=== PATIENT | male | born 1970 | race Caucasian/White ===

== ENCOUNTER 2016-04-22 21:23 | Inpatient (IN) ==
--- NOTE | 2016-04-22 22:31 | Emergency Department Note ---
Disposition Clinical Impression: Dehydration, C. difficile diarrhea Disposition: Admitted As Inpatient Condition: Good Time of Disposition: 23:30 Nausea/Vomiting/Diarrhea HPI - General Chief complaint: ED Nausea/Vomiting/Diarrhea Stated complaint: C-Diff+/here this am/Can't Stay Hydrated Time Seen by Provider: 04/22/16 22:30 Source: patient Mode of arrival: ambulatory Limitations: no limitations Nursing Notes Reviewed: Yes Vital Signs Reviewed: Yes - History of Present Illness HPI Narrative: Patient is a 46-year-old male with past medical history of C. difficile. He presents today due to dehydration. He was seen this morning for dehydration secondary to C. difficile as well. Patient was diagnosed outpatient about a week ago and was prescribed Flagyl. He finished Flagyl and Tuesday or Tuesday. He was still having diarrhea and came to the ED this morning. He was prescribed vancomycin and was was to follow-up with Dr. Mcintyre on Tuesday for reevaluation. Patient states that he has had multiple episodes of diarrhea since, continues to feel dehydrated, has dry lips and mouth, feels unwell. Has stopped urinating, no urine output since 3 or 4 PM today. Emesis mild nausea, mild generalized abdominal pain. Denies any chest pain, shortness of breath, fevers, hematuria or dysuria. - Related Data Previous Rx's Medication Instructions Recorded Ketorolac [Toradol] 10 mg PO Q6HR #20 tablet 04/22/16 Ondansetron [Zofran] 8 mg PO Q8HR #25 tablet 04/22/16 Vancomycin HCl 125 mg PO QID #56 cap 04/22/16 Allergies Allergy/AdvReac Type Severity Reaction Status Date / Time Penicillins [PCN] Allergy Hives Verified 10/30/15 16:45 Constitutional: Denies: fever Eyes: Denies: eye pain ENT ED: Denies: ear pain Cardiovascular: Denies: chest pain, palpitations Respiratory: Denies: cough, dyspnea, wheezes Gastrointestinal: Reports: abdominal pain, nausea, diarrhea. Denies: vomiting, hematemesis, melena Genitourinary: Denies: urgency, dysuria, frequency Musculoskeletal: Denies: back pain, neck pain Integumentary: Denies: rash Neurological: Denies: headache, weakness Psychiatric: Denies: depression Past Medical History - Past Medical History Attestation: Yes The following information was validated with the patient. Medical history: Reports: asthma, hypertension Psychiatric history: Reports: no psych history - Social History Smoking Status: Never smoker Smokeless Tobacco Status: No Alcohol use: Reports: rarely Drug use: Reports: none Physical Exam - General Limitations: no limitations General appearance: alert, in no apparent distress - Head Head exam: atraumatic, normocephalic, normal inspection - Eye Eye exam: Present: normal appearance, PERRL, EOMI - ENT ENT exam: other (Tacky mucous membranes, dry lips) - Neck Neck exam: Present: normal inspection, full ROM, trachea midline - Chest Chest inspection: Present: normal inspection, symmetric chest wall rise - Respiratory Respiratory exam: Present: normal lung sounds bilaterally - Cardiovascular Cardiovascular exam: Present: regular rate, normal rhythm, normal heart sounds - Abdominal Exam Abdominal exam: Present: soft, tenderness (Mild generalized abdominal tenderness.). Absent: distention, guarding, rebound, rigidity - Extremities Exam Extremities exam: Present: normal inspection, full ROM. Absent: tenderness, pedal edema - Back Exam Back exam: Present: normal inspection, full ROM. Absent: tenderness - Neurological Exam Neurological exam: Present: alert, oriented X3 - Psychiatric Psychiatric exam: Present: normal affect, normal mood - Skin Skin exam: Present: warm, dry, intact, normal color Course Course Narrative: Patient was febrile on presentation. Otherwise, the rest of the vitals were within normal limits. Tylenol given for fever. Mild abdominal tenderness generalized on exam. Tacky mucous membranes, dry lips. Clinical signs of dehydration. Due to this being the patient's second visit in 24 hours, we will plan to admit the patient for dehydration and IV fluids. 1 L normal saline bolus started. We will plan to admit due to C. difficile, secondary to dehydration. Vital Signs Temperature 102 F H 04/22/16 22:08 Pulse Rate 93 04/22/16 22:08 Respiratory Rate 16 04/22/16 22:08 Blood Pressure 120/74 04/22/16 22:08 O2 Sat by Pulse Oximetry 97 04/22/16 22:08 Temperature 102 F H 04/22/16 22:08 Pulse Rate 93 04/22/16 22:08 Respiratory Rate 16 04/22/16 22:08 Blood Pressure 120/74 04/22/16 22:08 O2 Sat by Pulse Oximetry 97 04/22/16 22:08 Oxygen Delivery Oxygen Delivery Room Air Nausea/Vomiting/Diarrhea - MDM Narrative Medical decision making narrative: Patient was febrile on presentation. Otherwise, the rest of the vitals were within normal limits. Tylenol given for fever. Mild abdominal tenderness generalized on exam. Tacky mucous membranes, dry lips. Clinical signs of dehydration. Due to this being the patient's second visit in 24 hours, we will plan to admit the patient for dehydration and IV fluids. 1 L normal saline bolus started. We will plan to admit due to C. difficile, secondary to dehydration. - Medical Records Medical records reviewed: Yes I reviewed the patient's medical records. - Lab Data Lab results reviewed: Yes I reviewed the patient's lab results. Result diagrams: 04/22/16 22:45 04/22/16 22:45 Lab Results 04/22/16 04/22/16 Range/Units 22:45 22:45 WBC 16.5 H (4.3-11.1) K/mcL RBC 5.53 H (4.19-5.50) M/mcL Hgb 10.3 L (12.9-16.9) g/dL Hct 32.8 L (37.5-50.1) % MCV 59.3 L (83.0-100.0) fL MCH 18.6 L (28.0-33.3) pg MCHC 31.4 L (31.6-35.5) g/dL RDW 19.4 H (11.5-14.5) % Plt Count 386 (140-400) K/mcL MPV 9.1 L (9.4-12.4) fL Immature Gran % 0.5 (0-4) % Seg Neutrophils % 86.0 % Lymphocytes % 5.5 % Monocytes % 6.9 % Eosinophils % 0.8 % Basophils % 0.3 % Neutrophils # 14.2 H (1.6-8.9) K/mcL Lymphocytes # 0.9 (0.6-4.6) K/mcL Monocytes # 1.1 (0.0-1.3) K/mcL Eosinophils # 0.1 (0.0-0.6) K/mcL Basophils # 0.1 (0.0-0.2) K/mcL Nucleated RBCs/100 WBC 0.1 H (0) /100 WBC Platelet Estimate Normal (Normal) Anisocytosis 2+ A (Not Present) Microcytosis Present A (Not Present) Sodium 135 L (136-145) mEq/L Potassium 3.5 (3.5-4.5) mEq/L Chloride 105 (98-109) mEq/L Carbon Dioxide 23 (19-29) mEq/L BUN 11 (8-26) mg/dL Creatinine 1.14 (0.72-1.25) mg/dL Est GFR ( Amer) > 60 (> 60) Est GFR (Non-Af Amer) > 60 (> 60) BUN/Creatinine Ratio 10 (6-26) Glucose 108 H (70-99) mg/dL Calculated Osmolality 280 (280-300) Calcium 8.4 L (8.6-10.8) mg/dL S.B.A.R. - S.B.A.R. Situation: Demographics, MOA Background: Presenting Complaint, Relevant PMH, Meds, & Allergies Assessment: Vital Signs, Course and respsone to treatment, Exam Concerns, Patient/Family Expectation, Pertinant Lab Results, Outstanding Labs Recommendation: Barrier(s) to disposition, Recommendation based on pending studies, treatments, or consults S.B.A.R. Report Given to: Dr. Hart S.B.A.R. Repor Time: 23:30 Attestation Statement - Attestation Attestation: I, Celso Chiang MD, personally performed a history and physical exam of the patient and discussed their management with the resident. I reviewed the resident's note and agree with the documented findings, medical decision making , and plan of care. 46-year-old male presents to the emergency department with a complaint of profuse diarrhea and crampy abdominal pain. Patient was recently diagnosed with C. difficile and treated as an outpatient. His symptoms seem to be resolved until yesterday whenever the diarrhea returned and became worse with crampy diffuse abdominal pain and fever. He was seen here in the emergency department earlier today and received IV fluids. This evening's symptoms were worse so he returned. On examination patient is a well-developed well-nourished male in no acute distress. He is alert and oriented 3. There is no cyanosis or diaphoresis. Labs reviewed. The hospitalist, Dr. Hart, was consulted and accepted admission of the patient.
[2016-04-22] MEDS ORDERED: 0.9 % Sodium Chloride 1,000 ML IVC ONE (22:39)
[2016-04-22] MEDS ORDERED: Ondansetron 4 MG/2 ML VIAL IVP ONE (22:39)
[2016-04-22 22:51] LABS: Basophils # 0.1 K/mcL (0.0-0.2); Basophils % 0.3 %; Eosinophils # 0.1 K/mcL (0.0-0.6); Eosinophils % 0.8 %; Hematocrit 32.8 % (37.5-50.1); Hemoglobin 10.3 g/dL (12.9-16.9); Immature Granulocytes % 0.5 % (0-4); Lymphocytes # 0.9 K/mcL (0.6-4.6); Lymphocytes % 5.5 %; Mean Corpuscular HGB Conc 31.4 g/dL (31.6-35.5); Mean Corpuscular Hemoglobin 18.6 pg (28.0-33.3); Mean Corpuscular Volume 59.3 fL (83.0-100.0); Mean Platelet Volume 9.1 fL (9.4-12.4); Monocytes # 1.1 K/mcL (0.0-1.3); Monocytes % 6.9 %; Neutrophils # 14.2 K/mcL (1.6-8.9); Nucleated Red Blood Cells 0.1 /100 WBC (0); Platelet Count 386 K/mcL (140-400); Red Blood Count 5.53 M/mcL (4.19-5.50); Red Cell Distribution Width 19.4 % (11.5-14.5)
[2016-04-22 23:03] LABS: BUN/Creatinine Ratio 10 (6-26); Blood Urea Nitrogen 11 mg/dL (8-26); Calcium 8.4 mg/dL (8.6-10.8); Carbon Dioxide 23 mEq/L (19-29); Chloride 105 mEq/L (98-109); Glucose 108 mg/dL (70-99); Osmolality,Calculated 280 (280-300); Potassium 3.5 mEq/L (3.5-4.5); Sodium 135 mEq/L (136-145); eGFR For African Americans > 60 (> 60); eGFR For Non-African Americans > 60 (> 60)
[2016-04-22] MEDS ORDERED: MetroNIDAZOLE 500 MG/100 ML 500 MG/100 ML BAG IVPB ONE (23:23)
[2016-04-22 23:31] LABS: Anisocytosis 2+ (Not Present); Platelet Estimate Normal (Normal)
[2016-04-22 23:32] LABS: Microcytosis Present (Not Present)
[2016-04-23] MEDS ORDERED: *HR* Promethazine 25 MG/ML VIAL IVP PRN (02:40)
[2016-04-23] MEDS ORDERED: Naloxone 0.4 MG/ML INJ IVP PRN (02:40)
[2016-04-23] MEDS ORDERED: *HR* HYDROmorphone (PF) 1 MG/ML SYRINGE IVP PRN (02:40)
[2016-04-23] MEDS ORDERED: Acetaminophen 325 MG TABLET PO PRN (02:40)
[2016-04-23] MEDS ORDERED: Diphenoxylate/Atropine 1 TAB TABLET PO PRN (02:49)
[2016-04-23] MEDS ORDERED: Hyoscyamine 0.5 MG/ML MLS IVP PRN (02:49)
[2016-04-23] MEDS: 0.9 % Sodium Chloride 1,000 ML IVC SCH ×3 (03:01→17:49)
--- NOTE | 2016-04-23 03:03 | Internal Med History&Physical ---
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 (2) Sepsis Current visit: Yes Status: Acute . Qualifiers: Sepsis type: sepsis due to unspecified organism Qualified Code(s): A41.9 - Sepsis, unspecified organism (3) Urine abnormality Current visit: Yes Status: Acute . (4) Calcium oxalate crystals present in urine Current visit: Yes Status: Acute . (5) Urinary cast, hyaline Current visit: Yes Status: Acute . (6) Nephropathy induced by unspecified drug, medicament or biological substance Current visit: Yes Status: Acute . (7) Clostridium difficile infection Current visit: Yes Status: Acute . (8) Dehydration Current visit: Yes Status: Acute . (9) SIRS due to infectious process with acute organ dysfunction Current visit: Yes Status: Acute . (10) Microcytic hypochromic anemia Current visit: Yes Status: Chronic . (11) UTI (urinary tract infection) Current visit: Yes Status: Acute . Qualifiers: Urinary tract infection type: site unspecified Hematuria presence: without hematuria Qualified Code(s): N39.0 - Urinary tract infection, site not specified (12) AZIZA (acute kidney injury) Current visit: Yes Status: Acute . (13) Obesity (BMI 30-39.9) Current visit: Yes Status: Chronic . (14) Clostridium difficile enterocolitis Current visit: Yes Status: Acute . Internal Medicine - H&P: HPI Chief complaint: Nausea vomiting diarrhea and abdominal pain Admitted From: Emergency Dept Plans for Post Hospital Care: Home History of present illness: Mr. Craig is a 46 year old male with history significant for hypertension, dyslipidemia, GERD, ?borderline DM/glucose intolerance, osteoarthritis, RAD/ asthma, obesity, nonsmoker The patient was visited and interviewed and examined. Patient is admitted to the [facility] emergency department when he presents with history of recently diagnosed as C. difficile enterocolitis following a course of today antibiotic therapy with Omnicef for URI. He denies any other potential exposures to see if C. difficile. He was rated as an 8/10 severity cramping constant diffuse. Nothing seemed to improve when symptoms were present. Symptoms however were aggravated with eating. Vital signs have captured evidences of temperatures as high as 102 degrees Fahrenheit. The course of his illness. Patient initiated on oral metronidazole therapy. He completed the weeks treatment and return to the emergency department 3 days before this presentation reports continued abdominal pain nausea and diarrhea. He was at that time prescribed vancomycin oral therapy plus Zofran as antiemetic and Toradol as anti-inflammatory analgesia and will schedule outpatient appointment with infectious disease to occur within a week. However he continued to be symptomatic thus failing outpatient therapy returning to the emergency department due to progressive dehydration due to profuse diarrhea and progressive anorexia for solids and liquids. The general feeling of dehydration with dried lips and mouth and feeling of unwellness. Multiple episodes of loose watery diarrhea. He reported that he had stopped urinating approximately 3 to 4 PM the day of presentation. He denied any feverishness and chills sweats. Denied any evidence of hematuria or melena. No blood per rectum. Episodic emesis with associated mild nausea and generalized abdominal discomfort with cramping pain. Findings in the ED were compatible with systemic inflammatory response syndrome and sepsis criteria present upon admission. RBC indices were noteworthy for a microcytic hyperchromic anemia with microcytosis suggestive of a hemoglobinopathy. Patient acknowledged a history of thalassemia minor. He denied any evidence bleeding events suggestive of hemolysis. Urine sediment was noteworthy for calcium oxalate crystals, hyalin casts, marked proteinuria and concentrated urine. Soft findings for UTI also noted. Blood cell differential in addition to the neutrophilic leukocytosis polychromasia and hypochromasia with poikilocytosis. Evidence of helmet cells and schistocytes were also noted. Tinnitus. 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 C. difficile toxin B gene testing returned positive. The patient is admitted to undergo further evaluation and disposition. He is at risk for clinical decline and morbidity given his presenting findings, chief complaints and comorbidities. Cumulative laboratory and radiographic data base was reviewed,considered and discussed. Pertinent ancillary medical records including ECW and PCI documentation was reviewed and considered. Given the patient's presenting concerns, past medical history, clinical findings and symptoms, he is admitted at this time will undergo further evaluation and disposition. Orders were written as per the computerized physician job order clerk system.......................................................................... .................... Consultative opinions will be sought as clinical circumstances justify. Pain management needs will be addressed. Laboratory and radiographic data base will be updated as appropriate. Studies include: Cultures blood urine, GI stool panel, LDH, CPK, pt/inr, aptt, cardiac injury panel, BNP, UA, metabolic and hematologic panel, mag, phos, ionized calcium, thyroid panel, lipid profile, HbgA1c C-pep, CRP, sed rate, respiratory infection profile, respiratory virus panel, blood gas, amylase, lipase, lactic acid, iron studies, haptoglobin,retic count, random urine assays, serologies, etc. Precautions: Aspiration, fall, delirium protocol/surveillance initiated. Bowel rest imposed. Anti-emetics, probiotic, prokinetic therapy employed. Intravenous hyoscyamine when necessary for colonic spasms. Nocturnal lomotil trial when necessary for restless sleep. Telemetry with continuous hemodynamic monitoring and pulse oximetry initiated. Orthostatic vital signs. Empiric antibody coverage: Intravenous ciprofloxacin and metronidazole pending final culture data. Vancomycin oral suspension resumed. Special studies: CT abd/pelvis, chest x-ray, telemetry, EKG. Pulmonary toilet: Incentive spirometry. PRN aerosol bronchodilator, mucolytic, antitussive, supplemental oxygen. Corticosteroid therapyPRN. CPAP/BiPAP supplemental oxygen deliveryPRN. Aerosol Mucomyst therapyPRN. Fluid and electrolyte repletion efforts will proceed. Careful attention to fluid balance and renal recovery will be emphasized. Avoidance of nephrotoxic exposure and adverse drug drug interaction in the setting of impaired renal function will be monitored closely. Acute coronary syndrome protocol/surveillance initiated. DVT and PUD prophylaxis initiated: PPI therapy, intermittent pneumatic cuffs. Subcutaneous heparin was held due to thrombocytopenia. Early ambulation will be encouraged. Immunization updates recommended. Influenza and pneumococcal vaccinations as part of ongoing preventative healthcare recommendations strongly recommended. Smoking cessation counseling briefly addressed. Patient is a nonsmoker. Advanced care directive discussion briefly addressed. Patient does not declare any healthcare restrictions at this time. Cardiovascular risk appraisal and cardiovascular risk reduction efforts will be emphasized. Physical occupational therapy may be counseled to evaluate patient's function capacity and progressive mobility of her circumstances justify. Nutrition/diabetes education counseling may be considered as circumstances justify. Outpatient medication schedules will be reviewed, confirmed and facilitated as appropriate. Reconciliation of home treatments including adjustments, substitutions and reintroduction into the treatment regimen as necessary maintenance therapies for chronic pre-existing medical conditions. Plan of care has been reviewed and discussed in detail with the patient. Questions addressed. Hospital course dictated by the clinical findings, treatment response and potential consultative interventions. Patient is at risk for further acute clinical decline and morbidity due to presenting chief complaints, findings and comorbid conditions. Condition is serious. Prognosis is guarded. CODE STATUS is full. Past Med Surg Social Fam HX - Past Medical History Source: old records reviewed Medical history: arthritis, asthma, GERD, hyperlipidemia, hypertension, other ( Thalassemia minor with microcytic hyperchromic red blood cell indices. Biliary dyskinesia status post laparoscopic cholecystectomy. Allergic rhinitis.) Psychiatric history: other - Past Surgical History Surgical History: cholecystectomy, sinus surgery (Deviated septum repair. Tonsillectomy adenoidectomy.), other (Colonoscopy with polypectomy.) - Social History Smoking Status: Never smoker Smokeless Tobacco Status: No Alcohol use: rarely Drug use: none Occupational status: employed Current living situation: With Family Activity Level: Independent ambulation, Mostly sedentary Recent Out of Country Travel Within the Last 8 Weeks: No Exposure or Possible Exposure to Illness During Travel: No Internal Medicine - H&P: Meds Ketorolac [Toradol] 10 mg PO Q6HR #20 tablet 04/22/16 [Rx] Ondansetron [Zofran] 8 mg PO Q8HR #25 tablet 04/22/16 [Rx] Vancomycin HCl 125 mg PO QID #56 cap 04/22/16 [Rx] Allergies Penicillins [PCN] Allergy (Verified 10/30/15 16:45) Hives All Systems PM: A 10-system review of systems was performed and is negative for pertinent findings except as documented above in the HPI. - Constitutional Constitutional: malaise, no chills, no fever(s), no night sweats - EENT Eyes: as per HPI, no change in vision, no discharge, no pain, no photophobia Ears: as per HPI, no ear discharge, no ear pain, no tinnitus Nose, mouth and throat: as per HPI, no dysphagia, no nasal discharge, no neck pain, no sore throat - Cardiovascular Cardiovascular ROS IM: as per HPI, no chest pain, no diaphoresis, no dyspnea, no lightheadedness, no palpitations, no syncope - Respiratory Respiratory: as per HPI, no cough, no dyspnea, no wheezing, no excessive phlegm production - Gastrointestinal Gastrointestinal: as per HPI, abdominal pain, bloating, change in stool character, cramping, diarrhea, loose stools, nausea, no hematemesis, no hematochezia, no melena, no vomiting - Genitourinary Genitourinary ROS male: as per HPI - Musculoskeletal Musculoskeletal ROS IM: as per HPI, no numbness, no tingling - Integumentary Integumentary IM: as per HPI, no rash, no unusual bruising - Neurological Neurological ROS: as per HPI, no confusion, no convulsions, no focal weakness, no numbness, no tingling, no tremor(s) - Psychiatric Psychiatric: as per HPI - Endocrine Endocrine IM: as per HPI - Hematologic/Lymphatic Hematologic/Lymphatic: as per HPI, no easy bruising - Allergic/Immunologic Allergic/Immunologic: as per HPI - Constitutional Vitals: Temp Pulse Resp BP Pulse Ox 99.7 F H 88 16 144/87 94 L 04/23/16 02:00 04/23/16 02:00 04/23/16 02:00 04/23/16 02:00 04/23/16 02:00 General appearance: Present: cooperative, mild distress, A&O X 3, obese, answers questions appropriately - Head Head exam: Present: atraumatic, normocephalic - Eye Eye exam: Present: EOMI, PERRL, conjuntiva pink, sclera anicteric Pupils: Present: normal accommodation, PERRL - ENT ENT exam: Present: mucous membranes dry, normal external ear exam, normal oropharynx - Neck Neck exam general surgery: Present: full ROM, supple, trachea midline. Absent: lymphadenopathy, nuchal rigidity - Respiratory Respiratory exam: Present: decreased breath sounds, CTAB. Absent: accessory muscle use, rales, rhonchi, wheezes - Cardiovascular Cardiovascular exam: Present: distant heart sounds, RRR, +S1, +S2. Absent: diastolic murmur, gallop, rubs, systolic murmur - GI/Abdominal GI/Abdominal exam: Present: distended, hyperactive bowel sounds, soft, tenderness (DIFFUSE), no peritoneal signs - Extremities Exam Extremities exam: Present: full ROM, warm, radial pulses palpable and symetrical. Absent: calf tenderness, cyanotic, pedal edema - Back Exam Back exam: Present: full ROM. Absent: CVA tenderness (L), CVA tenderness (R), muscle spasm, paraspinal tenderness, rash noted, vertebral tenderness - Neurological Exam Neurological exam: Present: alert, CN II-XII intact, oriented X3, no focal deficits. Absent: pronater drift, facial droop, speech deficit - Expanded Neurological Exam Neurological exam expanded: Present: inattentive, protecting the airway. Absent : ataxia, expressive aphasia, receptive aphasia Patient oriented to: Present: person, place, time Speech: Present: fluid speech Ataxia: Absent: yes Coma Scale Eye Opening: Spontaneous Coma Scale Motor Response: Obeys Commands Coma Scale Verbal Response: Oriented Coma Scale Total: 15 - Psychiatric Psychiatric exam: Present: flat affect, normal mood - Skin Skin exam: Present: dry, intact, warm. Absent: petechiae, rash, urticaria, vesicles Internal Med - H&P Results - Labs CBC & Chem 7: 04/22/16 22:45 04/22/16 22:45 Labs: Vital Signs Temp Pulse Resp BP Pulse Ox 04/23/16 02:00 99.7 F H 88 16 144/87 94 L 04/22/16 23:54 18 137/78 04/22/16 22:08 102 F H 93 16 120/74 97 Intake and Output 04/22/16 04/22/16 04/23/16 15:59 23:59 07:59 Intake Total 100 / 100 Output Total 0 / 0 Balance 100 / 100 Intake: IV Fluids 100 / 100 Flagyl 500 MG/100 ML 500 100 / 100 mg In 100 ml @ 100 mls/hr IVPB ONCE ONE Rx#: [id number] Oral 0 / 0 Output: Urine 0 / 0 Other: Weight 98.883 kg 103.532 kg Patient Weight 04/23/16 23:59 Weight 103.532 kg Short CBC 04/22/16 Range/Units 22:45 WBC 16.5 H (4.3-11.1) K/mcL Hgb 10.3 L (12.9-16.9) g/dL Hct 32.8 L (37.5-50.1) % Plt Count 386 (140-400) K/mcL Neutrophils # 14.2 H (1.6-8.9) K/mcL BMP 04/22/16 Range/Units 22:45 Sodium 135 L (136-145) mEq/L Potassium 3.5 (3.5-4.5) mEq/L Chloride 105 (98-109) mEq/L Carbon Dioxide 23 (19-29) mEq/L BUN 11 (8-26) mg/dL Creatinine 1.14 (0.72-1.25) mg/dL Glucose 108 H (70-99) mg/dL Calcium 8.4 L (8.6-10.8) mg/dL Allergies Allergy/AdvReac Type Severity Reaction Status Date / Time Penicillins [PCN] Allergy Hives Verified 10/30/15 16:45 - Impressions Abnormal lab results WBC 16.5 K/mcL (4.3-11.1) H 04/22/16 22:45 RBC 5.53 M/mcL (4.19-5.50) H 04/22/16 22:45 Hgb 10.3 g/dL (12.9-16.9) L 04/22/16 22:45 Hct 32.8 % (37.5-50.1) L 04/22/16 22:45 MCV 59.3 fL (83.0-100.0) L 04/22/16 22:45 MCH 18.6 pg (28.0-33.3) L 04/22/16 22:45 MCHC 31.4 g/dL (31.6-35.5) L 04/22/16 22:45 RDW 19.4 % (11.5-14.5) H 04/22/16 22:45 MPV 9.1 fL (9.4-12.4) L 04/22/16 22:45 Neutrophils # 14.2 K/mcL (1.6-8.9) H 04/22/16 22:45 Nucleated RBCs/100 WBC 0.1 /100 WBC (0) H 04/22/16 22:45 Anisocytosis 2+ (Not Present) A 04/22/16 22:45 Microcytosis Present (Not Present) A 04/22/16 22:45 Sodium 135 mEq/L (136-145) L 04/22/16 22:45 Glucose 108 mg/dL (70-99) H 04/22/16 22:45 Calcium 8.4 mg/dL (8.6-10.8) L 04/22/16 22:45 Laboratory Results WBC 16.5 K/mcL (4.3-11.1) H 04/22/16 22:45 RBC 5.53 M/mcL (4.19-5.50) H 04/22/16 22:45 Hgb 10.3 g/dL (12.9-16.9) L 04/22/16 22:45 Hct 32.8 % (37.5-50.1) L 04/22/16 22:45 MCV 59.3 fL (83.0-100.0) L 04/22/16 22:45 MCH 18.6 pg (28.0-33.3) L 04/22/16 22:45 MCHC 31.4 g/dL (31.6-35.5) L 04/22/16 22:45 RDW 19.4 % (11.5-14.5) H 04/22/16 22:45 Plt Count 386 K/mcL (140-400) 04/22/16 22:45 MPV 9.1 fL (9.4-12.4) L 04/22/16 22:45 Immature Gran % 0.5 % (0-4) 04/22/16 22:45 Seg Neutrophils % 86.0 % 04/22/16 22:45 Lymphocytes % 5.5 % 04/22/16 22:45 Monocytes % 6.9 % 04/22/16 22:45 Eosinophils % 0.8 % 04/22/16 22:45 Basophils % 0.3 % 04/22/16 22:45 Neutrophils # 14.2 K/mcL (1.6-8.9) H 04/22/16 22:45 Lymphocytes # 0.9 K/mcL (0.6-4.6) 04/22/16 22:45 Monocytes # 1.1 K/mcL (0.0-1.3) 04/22/16 22:45 Eosinophils # 0.1 K/mcL (0.0-0.6) 04/22/16 22:45 Basophils # 0.1 K/mcL (0.0-0.2) 04/22/16 22:45 Nucleated RBCs/100 WBC 0.1 /100 WBC (0) H 04/22/16 22:45 Platelet Estimate Normal (Normal) 04/22/16 22:45 Anisocytosis 2+ (Not Present) A 04/22/16 22:45 Microcytosis Present (Not Present) A 04/22/16 22:45 Sodium 135 mEq/L (136-145) L 04/22/16 22:45 Potassium 3.5 mEq/L (3.5-4.5) 04/22/16 22:45 Chloride 105 mEq/L (98-109) 04/22/16 22:45 Carbon Dioxide 23 mEq/L (19-29) 04/22/16 22:45 BUN 11 mg/dL (8-26) 04/22/16 22:45 Creatinine 1.14 mg/dL (0.72-1.25) 04/22/16 22:45 Est GFR ( Amer) > 60 (> 60) 04/22/16 22:45 Est GFR (Non-Af Amer) > 60 (> 60) 04/22/16 22:45 BUN/Creatinine Ratio 10 (6-26) 04/22/16 22:45 Glucose 108 mg/dL (70-99) H 04/22/16 22:45 Calculated Osmolality 280 (280-300) 04/22/16 22:45 Calcium 8.4 mg/dL (8.6-10.8) L 04/22/16 22:45 - Attending Attestation My signature below is to certify that this patient is under my care and that I, or nurse practitioner, or a physician's quality control assistant working with me, has a face-to -face encounter with this patient. Allergies Penicillins [PCN] Allergy (Verified 10/30/15 16:45) Hives I & O 04/20/16 04/21/16 04/22/16 04/23/16 23:59 23:59 23:59 23:59 Intake Total 100 / 100 Output Total 0 / 0 Balance 100 / 100 Weight 98.883 kg 103.532 kg Intake: IV Fluids 100 / 100 Flagyl 500 MG/100 ML 500 100 / 100 mg In 100 ml @ 100 mls/hr IVPB ONCE ONE Rx#: [id number] Oral 0 / 0 Output: Urine 0 / 0 Medications Acetaminophen (Tylenol) 650 mg PO Q6HR PRN PRN Reason: Mild Pain (1-3) Stop: 10/23/16 02:41 Diphenoxylate HCl/Atropine (Lomotil 2.5 Mg/0.025 Mg) 2 tab PO HS PRN PRN Reason: Diarrhea Stop: 10/23/16 21:01 Hydromorphone HCl (Dilaudid) 0.5 mg IVP Q2H PRN PRN Reason: Severe Pain (7-10) Stop: 10/23/16 02:41 Hyoscyamine Sulfate (Levsin) 0.25 mg IVP QID PRN PRN Reason: Abdominal Distention Stop: 10/23/16 02:50 Sodium Chloride (0.9 % Sodium Chloride) 1,000 mls @ 150 mls/hr IVC .Q6H40M [facility] Stop: 10/23/16 02:46 Last Admin: 04/23/16 03:01 Dose: 150 mls/hr Metronidazole (Flagyl 500 Mg/100 Ml) 500 mg in 100 mls @ 100 mls/hr IVPB Q6HR [facility] Stop: 10/23/16 06:01 Ciprofloxacin Lactate (Cipro 400 Mg/200 Ml) 400 mg in 200 mls @ 200 mls/hr IVPB Q12HR [facility] Stop: 10/23/16 06:01 Naloxone HCl (Narcan) 0.4 mg IVP Q2MIN PRN PRN Reason: Opioid Reversal Stop: 10/23/16 02:41 Omeprazole (Prilosec) 20 mg PO DAILY@0630 [place] PRN Reason: Protocol Stop: 10/23/16 06:31 Oxycodone HCl (Roxicodone) 10 mg PO Q6HR PRN PRN Reason: Moderate Pain (4-6) Stop: 10/23/16 02:41 Promethazine HCl (Phenergan) 12.5 mg IVP Q6HR PRN PRN Reason: Nausea And Vomiting Stop: 10/23/16 02:41 Last Admin: 04/23/16 03:07 Dose: 12.5 mg Vancomycin HCl (Vancocin) 250 mg PO QID [facility] Stop: 10/23/16 09:01 Discontinued Medications Acetaminophen (Tylenol) 1,000 mg PO ONCE ONE Stop: 04/22/16 23:06 Last Admin: 04/22/16 23:11 Dose: 1,000 mg Sodium Chloride (0.9 % Sodium Chloride) 1,000 mls @ 3,750 mls/hr IVC .Q16M ONE Stop: 04/22/16 22:54 Last Admin: 04/22/16 23:11 Dose: 3,750 mls/hr Metronidazole (Flagyl 500 Mg/100 Ml) 500 mg in 100 mls @ 100 mls/hr IVPB ONCE ONE Stop: 04/23/16 00:22 Last Infusion: 04/23/16 01:44 Dose: 0 mls/hr Ondansetron HCl (Zofran) 4 mg IVP ONCE ONE PRN Reason: Protocol Stop: 04/22/16 22:40 Last Admin: 04/22/16 23:11 Dose: 4 mg Nursing Notes 04/22/16 23:59 Transport Report by Kennedi Willett Date: 04/22/16 Transport Method: Ambulatory Penicillins [PCN] Allergy (Verified 10/30/15 16:45) Hives Resuscitation Status Oxygen: Mental Status: Fall Risk: Isolation: Nurse Required for Transport: No ___ Yes Limb Restrictions: No ___ Yes Behavioral issue/Risk for Elopement: No ___ Yes Telemetry Room Notification: Destination: MRI XRAY STRESS ULTRASOUND CT DIALYSIS ENDO OTHER: Depart Time: Nurse: Transporter: Arrive Time: Received by: ___ Return Time: Nurse: Transporter: ] Initialized on 04/22/16 23:59 - END OF NOTE 04/22/16 23:56 Transport Report by Kennedi Willett Date: 04/22/16 Transport Method: Ambulatory Penicillins [PCN] Allergy (Verified 10/30/15 16:45) Hives Resuscitation Status Oxygen: Mental Status: Fall Risk: Isolation: Nurse Required for Transport: No ___ Yes Limb Restrictions: No ___ Yes Behavioral issue/Risk for Elopement: No ___ Yes Telemetry Room Notification: Destination: MRI XRAY STRESS ULTRASOUND CT DIALYSIS ENDO OTHER: Depart Time: Nurse: Transporter: Arrive Time: Received by: ___ Return Time: Nurse: Transporter: ] Initialized on 04/22/16 23:56 - END OF NOTE Orders 04/22/16 22:39 0.9 % Sodium Chloride 1,000 ml IVC 3,750 mls/hr Ondansetron [Zofran] 4 mg IVP ONCE ONE 04/22/16 22:45 Basic Metabolic Panel Stat Comment: Specimen: Send someone from the department to collect Complete Blood Count [HEME] Stat Comment: Specimen: Send someone from the department to collect 04/22/16 23:05 Acetaminophen [Tylenol] 1,000 mg PO ONCE ONE 04/22/16 23:[address] Stat Comment: Reason for Visit: dehydration, c diff 04/22/16 23:23 MetroNIDAZOLE 500 MG/100 ML [Flagyl 500 MG/100 ML] 500 mg in 100 ml IVPB ONCE 04/22/16 23:50 CPAP [RC] HS 04/22/16 23:51 RT has an order or consult [RC] NOW 04/23/16 02:40 Peripheral IV [RC] CONT Vital Signs Assessment [RC] Q4H Acetaminophen [Tylenol] 650 mg PO Q6HR PRN HYDROmorphone (PF) [Dilaudid] 0.5 mg IVP Q2H PRN Naloxone [Narcan] 0.4 mg IVP Q2MIN PRN OxyCODONE Immed Rel [Roxicodone] 10 mg PO Q6HR PRN Promethazine [Phenergan] 12.5 mg IVP Q6HR PRN Resuscitation Status: Active [RES] Routine Resuscitation Status: Full Code Comment: 04/23/16 02:41 Bed rest [RC] .CONT Physician Instructions: Bed rest w/bathroom privileges [RC] .PRN Placement to Observation Routine Physician Instructions: Reason for Visit: Abdominal pain with nausea vomiting diarrhea Is VTE Prophylaxis Indicated?: Yes 04/23/16 02:42 Continuous pulse oximetry [RC] CONT Comment: Measure intake and output [RC] QSHIFT Measure weight [RC] DAILY RT has an order or consult [RC] NOW 04/23/16 02:45 Apply anti-embolic stockings [RC] .NOW Incentive Spirometry [RC] .6 TIMES PER HR WHILE AWAKE Troponin I Q6H Specimen: Send someone from the department to collect Comment: 0.9 % Sodium Chloride 1,000 ml IVC 150 mls/hr 04/23/16 02:49 Diphenoxylate/Atropine [Lomotil 2.5 mg/0.025 mg] 2 tab PO HS PRN Hyoscyamine [Levsin] 0.25 mg IVP QID PRN 04/23/16 04:00 Amylase AM 0400 Specimen: Send someone from the department to collect Comment: Ionized Calcium AM 0400 Specimen: Send someone from the department to collect Comment: Iron Profile AM 0400 Specimen: Send someone from the department to collect Comment: Lactate [Lactic Acid ([facility] Only)] AM 0400 Specimen: Send someone from the department to collect Comment: Lipase AM 0400 Specimen: Send someone from the department to collect Comment: Thyroid Stimulating Hormone AM 0400 Specimen: Send someone from the department to collect Comment: Venous Blood Gas AM 0400 Specimen: Send someone from the department to collect Comment: 04/23/16 06:00 400 MG IV Q12HR Ciprofloxacin 400 MG/200 ML [Cipro 400 MG/200 ML] 400 mg in 200 ml IVPB Q12HR 500mg IVPB q6hr MetroNIDAZOLE 500 MG/100 ML [Flagyl 500 MG/100 ML] 500 mg in 100 ml IVPB Q6HR 04/23/16 06:30 Omeprazole [PriLOSEC] 20 mg PO DAILY@0630 04/23/16 08:45 Troponin I Q6H Specimen: Send someone from the department to collect Comment: 04/23/16 09:00 Vancomycin Oral Soln [Vancocin] 250 mg PO QID 04/23/16 14:45 Troponin I Q6H Specimen: Send someone from the department to collect Comment: 04/23/16 Breakfast Clear Liquid Diet Diet Modifications: Patient Problems (Last Updated 04/23/16 @ 03:14 by Mateo Carlson MD) Clostridium difficile infection (Acute) Dehydration (Acute) C. difficile diarrhea (Acute) SIRS due to infectious process with acute organ dysfunction (Acute) Microcytic hypochromic anemia (Chronic) UTI (urinary tract infection) (Acute) AZIZA (acute kidney injury) (Acute) Obesity (BMI 30-39.9) (Chronic) Clostridium difficile enterocolitis (Acute) Calcium oxalate crystals present in urine (Acute) Nephropathy induced by unspecified drug, medicament or biological substance ( Acute) Sepsis (Acute) Urinary cast, hyaline (Acute) Urine abnormality (Acute) Thalassemia minor (Chronic) Vital Signs Temp Pulse Resp BP Pulse Ox 04/23/16 02:00 99.7 F H 88 16 144/87 94 L 04/22/16 23:54 18 137/78 04/22/16 22:08 102 F H 93 16 120/74 97 Laboratory Results 04/22/16 04/22/16 Range/Units 22:45 22:45 WBC 16.5 H (4.3-11.1) K/mcL RBC 5.53 H (4.19-5.50) M/mcL Hgb 10.3 L (12.9-16.9) g/dL Hct 32.8 L (37.5-50.1) % MCV 59.3 L (83.0-100.0) fL MCH 18.6 L (28.0-33.3) pg MCHC 31.4 L (31.6-35.5) g/dL RDW 19.4 H (11.5-14.5) % Plt Count 386 (140-400) K/mcL MPV 9.1 L (9.4-12.4) fL Immature Gran % 0.5 (0-4) % Seg Neutrophils % 86.0 % Lymphocytes % 5.5 % Monocytes % 6.9 % Eosinophils % 0.8 % Basophils % 0.3 % Neutrophils # 14.2 H (1.6-8.9) K/mcL Lymphocytes # 0.9 (0.6-4.6) K/mcL Monocytes # 1.1 (0.0-1.3) K/mcL Eosinophils # 0.1 (0.0-0.6) K/mcL Basophils # 0.1 (0.0-0.2) K/mcL Nucleated RBCs/100 WBC 0.1 H (0) /100 WBC Platelet Estimate Normal (Normal) Anisocytosis 2+ A (Not Present) Microcytosis Present A (Not Present) Sodium 135 L (136-145) mEq/L Potassium 3.5 (3.5-4.5) mEq/L Chloride 105 (98-109) mEq/L Carbon Dioxide 23 (19-29) mEq/L BUN 11 (8-26) mg/dL Creatinine 1.14 (0.72-1.25) mg/dL Est GFR ( Amer) > 60 (> 60) Est GFR (Non-Af Amer) > 60 (> 60) BUN/Creatinine Ratio 10 (6-26) Glucose 108 H (70-99) mg/dL Calculated Osmolality 280 (280-300) Calcium 8.4 L (8.6-10.8) mg/dL Assessments/Treatments ED Discharge Assessment Start: 04/22/16 21: 24 Freq: Status: Active Document 04/22/16 23:54 [facility] (Rec: 04/22/16 23:55 [facility] [id number]) ED Discharge Assessment ED Discharge Disposition Admitted Med Rec/Patient Pharmacy Completed? Yes Admitted to 3A Bed assigned 51 Transported by telephone technician Transported with IV continuing medication Report given to Nurse Care transferred to (name/credentials) DIA Brown Information relayed patient's care treatments medications given condition recent/anticipated changes Clinical Documentation Summary Provided Yes Pain Scale 4 Pain Scale Used Standard (1-10) Blood Pressure 137/78 Heart rate 92 Respiratory Rate 18 Oxygen Delivery Room Air Oxygen Saturation 97 Critical Care Minutes 0 ED Nausea/Vomiting/Diarrhea Assessment Start: 04/22/16 22: 11 Freq: Status: Complete Document 04/22/16 22:12 [facility] (Rec: 04/22/16 22:18 [facility] [id number]) Nausea/Vomiting/Diarrhea Symptoms/Complaint Diarrhea Abdominal Pain Onset 2 weeks Associated Abdominal Pain Yes Quality Aching Consistency Constant Improves With Nothing Associated Symptoms Fever/Chills Level Of Consciousness Awake Alert Appropriate Patient Orientation Person Place Time Name Age Date of Day of Month Day of Week Month Year Time of Day Respiratory Depth Normal Respiratory Effort Normal for Patient Spontaneous Non-Labored Respiratory Pattern Regular Abdomen Description Flat Soft Tender All Quadrants Bowel Sounds Active ED Comment Pt states that he was diagnosed with c-diff two weeks ago. pt states that he was started on flagyl but it did not clear up his symptoms. Pt states that he was seen here in this er this am due to diarrhea and abdominal pain. Pt states that he was started on Vanc this am. Pt states that he think he is dehydrated . Pt states that he continues to have diarrhea, has not urinated since 4pm, pt states that he is drinking well but that as soon as he drinks he has diarrhea. Pt states that his kidneys are now hurting and that he continues to have abdominal pain. 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 IV infusions, chest tube, indwelling Mobility N/A (0 points) Cognition N/A (0 points) Total Fall Risk Score 4 Fall Risk Category Low Risk (0-5) Fall Risk Interventions Low Risk Interventions Bed in lowest position Top side rails up x 2 Secure brake on bed Use properly fitting non-skid footwear Call light and frequently needed objects within reach Encourage patients/families to call for assistance when needed Fall education including risk assessment, injury risk and routine/ Inspect environment for safety and communication risk Supervise and assist with toileting/ADLs as needed IV-Invasive Line Management Start: 04/23/16 00: 28 Freq: Q4H Status: Active Document 04/23/16 01:25 BE (Rec: 04/23/16 01:32 [facility] [id number]) IV/Invasive Line Assessment Right Antecubital Date of Insertion 04/22/16 Time of Insertion 22:40 Reason for Line Insertion/Rationale for Replace Lost Fluids Insertion Gauge (gauge) 18 IV Catheter Type Peripheral IV Site Observation Patent Site Observation Intervention Inspected Line Dressing Applied Window Dressing Line Care Saline Flush Initial Patient Assessment Start: 04/23/16 00: 28 Freq: .ONCE Status: Active Document 04/23/16 00:51 [facility] (Rec: 04/23/16 00:54 [facility] [id number]) General Questions Date of Arrival on Unit 04/23/16 Time of Arrival on Unit 00:15 Admitted From Emergency Dept Chief Complaint abd painl, diarrhea Onset of Chief Complaint 04/22/16 History Provided By Patient Orientation To Call Light Bed Phone TV Bathroom Smoking Policy Visiting Hours Procedures ID Bracelet On Emergency Contact Name Jessica Craig Relationship to Patient Emergency Contact Bands applied ID band Allergy band Patient Health Portal Patient was provided information on Yes accessing patient portal Patient Requests Portal Enrollment No Reason No Portal Enrollment Patient Declines Malnutrition Screening Tool (MST) Have You Recently Lost Weight Without Yes Trying If Yes, How Much Weight Have You Lost 2-13 Pounds Have You Been Eating Poorly Because of a Yes Decreased Appetite MST Score 2 Advance Directives Advance Directives No Advance Directives Information Provided No Reason Not Provided Patient declined Patient Rights Copy of Rights Given and Verbalizes Yes Understanding Tobacco Free Boelus: Copy of S Yes Statement Given and Patient Verbalizes Understanding Communication Ability Primary Language [place] Preferred Language [place] Drying Machine Back Tender Required No Ability to Follow Directions Excellent Able to Read Yes Able to Write Yes Communication Tools None Caregiver Communication Skills No Impairment Impairment Learning Preferences One-on-One Instruction Audio Visual Written Demonstration Discussion Hearing Ability Normal Visual Assistive Devices Glasses Pain Assessment Do You Have Any Ongoing (Chronic) Pain No Problems Educated on Pain Scale Yes Past Medical History Medical history asthma hypertension Male Surgical History cholecystectomy Additional surgical history nasal surgery, tonsilectomy. Psychiatric history no psych history Smoking Status Never smoker Smokeless Tobacco Status No Alcohol use rarely Drug use none Occupational status employed Current living situation Home With Family Activity level Independent ambulation Recent Out of Country Travel Within the No Last 8 Weeks Exposure or Possible Exposure to Illness No During Travel Family History-Meaningful Use Additional family history No significant family history per patient. 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 Eating (Feeding) Ability Independent Bathing Ability Independent Upper Body Dressing Ability Independent Lower Body Dressing Ability Independent Ambulation Ability Independent Toileting Ability Independent Bladder Continent Bowel Continent Normal Bowel Pattern Daily Intake and Output, Strict Start: 04/23/16 00: 28 Freq: Q8H Status: Active Document 04/23/16 02:00 [facility] (Rec: 04/23/16 02:01 [facility]MO [id number]) Intake and Output Intake, Oral Amount 0 Output, Urine Amount 0 Measure weight Start: 04/23/16 00: 28 Freq: Status: Active Document 04/23/16 02:02 LMO (Rec: 04/23/16 02:02 LMO [id number]) Height and Weight Weight 103.532 kg Weight Measurement Method Built in [facility] Oxygen administration Start: 04/23/16 00: 28 Freq: Q12H Status: Active Document 04/23/16 01:25 [facility] (Rec: 04/23/16 01:32 [facility] [id number]) Oxygen Oxygen Delivery Method Room Air Patient Belongings Start: 04/23/16 00: 28 Freq: .ONCE Status: Active Document 04/23/16 00:51 [facility] (Rec: 04/23/16 00:54 [facility] [id number]) Patient Belongings Belongings With Patient on Admission Yes At Bedside Belongings Comment Tennis shoes, glasses, socks, pants, t-shirt, pajamas, underwear, 2 cell phones, asthma medication, probiotic, blood pressure medication, jacket. Patient Rounding Start: 04/23/16 00: 28 Freq: Q1H Status: Active Document 04/23/16 01:23 [facility] (Rec: 04/23/16 01:24 [facility] [id number]) Hourly Rounding Hourly Rounding Checked for Patient Positioning Patient Personal Items Placed Within Reach Checked Patient Pain Level Hourly Rounding Completed Yes Patient Awake Is family present? No Safety Call Light Within Reach Bed Position Low Phone Within Reach Bed Brake On Side Rails Up X2 Are the Floors Free From Trip Hazards? Yes Is the Room Free From Clutter? Yes Precautions Contact Precautions Turn and Postion Bedrest No Turn Q 2HR No Patient Position Back Document 04/23/16 02:00 LMO (Rec: 04/23/16 02:01 LMO [id number]) Hourly Rounding Hourly Rounding Checked for Patient Positioning Patient Personal Items Placed Within Reach Hourly Rounding Completed Yes Patient Awake Is family present? No Safety Call Light Within Reach Bed Position Low Phone Within Reach Bed Brake On Side Rails Up X2 Are the Floors Free From Trip Hazards? Yes Is the Room Free From Clutter? Yes Precautions Contact Precautions Turn and Postion Bedrest No Turn Q 2HR No Patient Position Back Document 04/23/16 03:14 [facility] (Rec: 04/23/16 03:14 [facility]F [id number]) Hourly Rounding Hourly Rounding Checked for Patient Positioning Patient Personal Items Placed Within Reach Checked Patient Pain Level Hourly Rounding Completed Yes Patient Awake Is family present? No Safety Call Light Within Reach Bed Position Low Phone Within Reach Bed Brake On Side Rails Up X2 Are the Floors Free From Trip Hazards? Yes Is the Room Free From Clutter? Yes Precautions Contact Precautions Turn and Postion Bedrest No Turn Q 2HR No Patient Position Right Side Peripheral venous cannula mgmt/flush Start: 04/23/16 02: 40 Freq: CONT Status: Active Document 04/23/16 03:14 [facility] (Rec: 04/23/16 03:14 BE [id number]) RT Continuous Pulse Oximetry Start: 04/22/16 21: 24 Freq: Status: Complete Document 04/22/16 22:12 [facility] (Rec: 04/22/16 22:18 [facility] [id number]) Saline lock insertion/management Start: 04/22/16 21: 24 Freq: Status: Complete Document 04/22/16 22:41 [facility] (Rec: 04/22/16 23:06 [facility] [id number]) IV Insertion/Site Assessment IV Attempt 1 Successful Successful Blood drawn and sent to Lab Yes Right Antecubital Date of Insertion 04/22/16 Time of Insertion 22:40 Reason for IV Insertion Replace Lost Fluids IV Catheter Type Peripheral IV Gauge (gauge) 18 Site Observation Patent Dressing Applied Window Dressing Patient Tolerance Tolerated Well Sepsis Screening Start: 04/23/16 00: 28 Freq: Q8H Status: Active Document 04/23/16 01:25 [facility] (Rec: 04/23/16 01:32 [facility] [id number]) Sepsis Screening Sepsis Infection Criteria Present confirmed infection Sepsis SIRS Criteria WBC > 12k or < 4k or bands > 10% Sepsis Screen No Definite Risk Sepsis Action Taken no action required Skin Risk Assessment Scale Start: 04/23/16 00: 28 Freq: Q12H Status: Active Document 04/23/16 01:25 BE (Rec: 04/23/16 01:32 [facility] [id number]) Skin Risk Assessment Scale Moisture Risk Rarely Moist Sensory Perception No Impairment Activity Risk Walks Frequently Mobility Risk No Limitations Nutrition Risk Adequate Friction & Shear Risk No Apparent Problem Skin Risk Total Score (points) 22 System Review Start: 04/23/16 00: 28 Freq: Q8H Status: Active Document 04/23/16 01:25 BE (Rec: 04/23/16 01:32 [facility] [id number]) Pain Assessment Pain Present Reports Pain Abdomen Pain Intensity 5 Description Ache Scale Used Numeric (1 - 10) Pain Intervention None Comment No orders placed at this time. Neurological Assessment Eye Opening Spontaneous Motor Obeys Commands Verbal Oriented Coma Scale Total 15 Neurologic Status Alert Patient Orientation Person Place Time Arousable To Name Speech Pattern Normal rate Normal rhythm Normal tone Appropriate Clear Patient Behavior Appropriate Cooperative Mood Description Calm Relaxed Appropriate Bilateral Pupil Reaction Reactive Pupil Size (mm) 3 Pupil [place] Equal Scleral Edema No All Four Limbs Strength Normal for Patient Set Up And Charger Strength Equal Push/Pull Equal Numbness/Tingling No Facial Symmetry Symmetrical Neurological Comment: Pt alert and oriented x3. Cardiovascular Assessment Signs and Symptoms Stomach Pain Hypertension Heart Sounds S1 & S2 Pulse Rhythm Regular Jugular Vein Distention None Capillary Refill < 3 Seconds Circulatory Tenderness Description None Right Radial 2+ Left Radial 2+ Right Dorsalis Pedis 2+ Left Dorsalis Pedis 2+ Mechanical Prophylaxis No Pacemaker Assessment Cardiac Comment: No tele ordered at this time. Respiratory Assessment Respiratory Symptoms None Effort Normal for Patient Spontaneous Non-Labored Depth Normal Respiratory Pattern Regular Chest Shape Normal Expansion Symmetrical All Lung [place]rett Clear Oxygen Delivery Method Room Air Cough Description None Sputum Amount None Respiratory Comment: No cough or sputum noted at this time. Gastrointestinal Assessment Abdomen Description Soft Round Tender Nausea/Vomiting Presence None GI Comment: Pt noted to have C.diff and frequent bowel movements All Four Quadrants Active Flatus Presence Present Genitourinary Assessment Genitourinary Symptoms None Bladder Pattern Normal Voiding Method Toilet Bladder Distention None Suprapubic Tenderness with Palpation No Comment: No urine present to assess at this time. Integumentary Assessment Nail Bed Appearance [place] Temperature Warm Moisture Dry Turgor Normal Color Normal All Pressure Points Assessed Yes Evidence of Incision/Wounds/Breakdown No Oral Cavity Normal Musculoskeletal Assessment Musculoskeletal Symptoms None Musculoskeletal Comment: pt up ad maria r Teaching Record Start: 04/23/16 00: 28 Freq: Q12H Status: Active Document 04/23/16 01:25 [facility] (Rec: 04/23/16 01:32 [facility] [id number]) Teaching Record: General Education Topics Hospital Environment Response Verbalize understanding Methods Discussion Recipient Patient Thrombosis Risk Factor Assessment Start: 04/23/16 00: 28 Freq: .ONCE Status: Active Document 04/23/16 00:51 [facility] (Rec: 04/23/16 00:54 [facility] [id number]) Thrombosis Risk Factor Assessment Each Factor Represents 1 point Age 41 - 59 years Obesity (BMI > 25) Other Risk Factors No Other congenital or acquired No thrombophilia - If yes, enter Type in comment Total Risk Factor Score 2 Risk Level Moderate Risk Triage Start: 04/22/16 21: 24 Freq: Status: Complete Document 04/22/16 22:08 [facility] (Rec: 04/22/16 22:11 [facility] [id number]) Triage Chief Complaint triage ED Nausea/Vomiting/Diarrhea Patient Stated Complaint diarrhea and dehydration DAVID 3 Onset (ago) week(s) Description of Symptoms Pt states that two weeks ago he was diagnosed with cdiff. Pt states that he was started on flagyl. Pt states that he was seen at our er this am because his symptoms hadnt resolved. Pt states that he was started on vanco this morning. Pt states that he is returning to the er due to possible dehydration. General Appearance alert in no apparent distress Work Related Injury? No Mode of arrival ambulatory Source patient Limitations no limitations Ebola Risk: Travel/Contact With Anyone No From Affected Area/s Temperature (97.6 F-99.6 F) 102 F H Temperature Source Oral Pulse Rate 93 Respiratory Rate 16 Blood Pressure 120/74 O2 Sat by Pulse Oximetry (95-100) 97 Oxygen Delivery Room Air Height 1.8 m Weight 98.883 kg Weight Measurement Method Stated by Patient Pain Scale 5 Medical history asthma hypertension Additional medical history PMH c-diff Male surgical history cholecystectomy Tonsillectomy Additional surgical history PMH nasal surgery Psychiatric history no psych history Smoking Status Never smoker Smokeless Tobacco Status No Alcohol Use rarely Drug Use none Safety Concerns Feels Safe At This Time Do you currently feel hopless, have No thoughts of self harm, or thoughts of harming others History of fall in last 14 days? No Influenza vaccine up to date Yes Pneumonia vaccine up to date No Tetanus UTD yes Vital Signs Assessment Start: 04/23/16 00: 28 Freq: Q4H Status: Active Document 04/23/16 02:00 LMO (Rec: 04/23/16 02:01 LMO [id number]) Vital Signs with MEWS Temperature (97.6 F-99.6 F) 99.7 F H Temperature Source Oral Pulse Rate 88 Respiratory Rate 16 Pulse Oximetry (95-100) 94 L Oxygen Delivery Room Air Blood Pressure 144/87 Blood Pressure Location Left Arm Source Automatic Cuff Position HOB Elevated Neuro Status *recalled from last Alert documentation MEWS Score 1 Wound Assessment Start: 04/23/16 00: 28 Freq: Q8H Status: Active Document 04/23/16 01:25 [facility] (Rec: 04/23/16 01:32 [facility] [id number]) Drains Tube/Drain Discontinued No Discharge Information ED Provider: Celso Chiang Status: Departed Time Seen by Provider: 04/22/16 22:30 Condition: Good Triaged At: Emergency Discharge Date/Time: 04/23/16 00:09 Emergency Discharge Disposition: Admitted As Inpatient Clinical Impression Dehydration C. difficile diarrhea Emergency Discharge Comment: Admit Intervention Last Done ED Discharge Assessment 04/22/16 23:54 Query Result ED Discharge Disposition Admitted Med Rec/Patient Phamracy completed? Yes ED Admit to 3A Bed assigned 51 Transported by telephone technician Transported with IV continuing medication Report given to Nurse Care transferred to DIA Brown Information relayed patient's care treatments medications given condition recent/anticipated change Clinical Documentation Summary Provided Yes Severity scale (1-10) 4 Pain Scale Used Standard (1-10) Blood Pressure 137/78 Heart rate 92 Respiratory Rate 18 Oxygen Delivery Room Air Pulse Oximetry Reading 97 Critical Care Minutes 0 ED Nausea/Vomiting/Diarrhea Assessment 04/22/16 22:12 Query Result Nausea/Vomiting/Diarrhea Symptoms/ Diarrhea Complaint Abdominal Pain Nausea/Vomiting/Diarrhea Onset 2 weeks Nausea/Vomiting/Diarrhea Associated Yes Abdominal Pain Nausea/Vomiting/Diarrhea Quality Aching Nausea/Vomiting/Diarrhea Consistency Constant Nausea/Vomiting/Diarrhea Improves With Nothing Nausea/Vomiting/Diarrhea Associated Fever/Chills Symptoms Level Of Consciousness Awake Alert Appropriate Patient Orientation Person Place Time Name Age Date of Day of Month Day of Week Month Year Time of Day Respiratory Depth Normal Respiratory Effort Normal for Patient Spontaneous Non-Labored Respiratory Pattern Regular Abdomen Description Flat Soft Tender All Quadrants -Bowel Sounds Active ED Comment Pt states that he was diagnosed with c-diff two weeks ago. pt states that he was started on flagyl but it did not clear up his symptoms. Pt states that he was seen here in this er this am due to diarrhea and abdominal pain. Pt states that he was started on Vanc this am. Pt states that he think he is dehydrated . Pt states that he continues to have diarrhea, has not urinated since 4pm, pt states that he is drinking well but that as soon as he drinks he has diarrhea. Pt states that his kidneys are now hurting and that he continues to have abdominal pain. Observation Discharge Date/Time: Observation Discharge Disposition: Observation Discharge Comment: Instructions: Stand-Alone Forms: Prescriptions: Visit Report - Forms: - Referrals: Luke Hoffmann MD (Primary Care Provider)
[2016-04-23 04:18] LABS: Ionized Calcium 1.13 mmol/L (1.15-1.35); VBG HCO3 24.3 mEq/L (21-27); VBG PH 7.37 pH Units (7.32-7.42)
[2016-04-23 04:30] LABS: Amylase 56 Units/L (25-125); Lipase 18 Units/L (8-78)
[2016-04-23 04:50] LABS: Thyroid Stimulating Hormone 1.148 mcIU/mL (0.350-4.840)
[2016-04-23 04:52] LABS: % Iron Saturation 4 % (20-55); Iron 7 mcg/dL (65-175); Transferrin 122 mg/dL (174-364)
[2016-04-23 05:25] LABS: Basophils % 0.2 %; Eosinophils # 0.1 K/mcL (0.0-0.6); Eosinophils % 0.6 %; Hematocrit 31.8 % (37.5-50.1); Hemoglobin 10.1 g/dL (12.9-16.9); Immature Granulocytes % 0.6 % (0-4); Lymphocytes # 0.9 K/mcL (0.6-4.6); Lymphocytes % 5.5 %; Mean Corpuscular HGB Conc 31.8 g/dL (31.6-35.5); Mean Corpuscular Hemoglobin 19.1 pg (28.0-33.3); Mean Platelet Volume 10.3 fL (9.4-12.4); Monocytes # 1.2 K/mcL (0.0-1.3); Monocytes % 7.3 %; Neutrophils # 14.1 K/mcL (1.6-8.9); Platelet Count 405 K/mcL (140-400); Red Cell Distribution Width 19.8 % (11.5-14.5); Segmented Neutrophils % 85.8 %
[2016-04-23] MEDS: MetroNIDAZOLE 500 MG/100 ML 500 MG/100 ML BAG IVPB SCH ×3 (05:38→17:49)
[2016-04-23 05:40] LABS: BUN/Creatinine Ratio 8 (6-26); Blood Urea Nitrogen 8 mg/dL (8-26); Carbon Dioxide 19 mEq/L (19-29); Chloride 108 mEq/L (98-109); Glucose 99 mg/dL (70-99); Potassium 3.4 mEq/L (3.5-4.5); Sodium 136 mEq/L (136-145); eGFR For African Americans > 60 (> 60); eGFR For Non-African Americans > 60 (> 60)
[2016-04-23 05:41] LABS: Alanine Aminotransferase 15 Units/L (0-55); Albumin 2.8 g/dL (3.5-5.0); Albumin/Globulin Ratio 0.8 (1.1-2.2); Alkaline Phosphatase 53 Units/L (38-126); Aspartate Amino Transferase 19 Units/L (5-34); Calcium 7.8 mg/dL (8.6-10.8); Chol/HDL Ratio 2.5 (0-4.9); Cholesterol 81 mg/dL (< 200); Globulin 3.3 g/dL (2.4-3.5); HDL Cholesterol 32 mg/dL (40-59); LDL Cholesterol,Calculated 38 mg/dL (0-99); Magnesium 1.2 mg/dL (1.6-2.6); Osmolality,Calculated 280 (280-300); Phosphorous 2.3 mg/dL (2.3-4.7); Total Protein 6.1 g/dL (6.0-8.3); Triglycerides 54 mg/dL (< 150); Uric Acid 3.1 mg/dL (3.5-7.2)
[2016-04-23 05:45] LABS: Bilirubin,Total 2.6 mg/dL (0.2-1.2)
[2016-04-23 06:03] LABS: C-Reactive Protein 149 mg/L (Less than 5)
[2016-04-23 06:05] LABS: Hemoglobin A1C 5.1 %
[2016-04-23 06:21] LABS: Anisocytosis 1+ (Not Present); Basophilic Stippling 1+ (Not Present); Hypochromasia Present (Not Present); Polychromasia 1+ (Not Present)
[2016-04-23 06:22] LABS: Microcytosis Present (Not Present); Tear Drop Cells 1+ (Not Present)
[2016-04-23 06:23] LABS: Platelet Estimate Normal (Normal)
[2016-04-23] MEDS: *HR* OxyCODONE Immed Rel 5 MG TABLET PO PRN ×2 (06:56→14:02)
[2016-04-23 07:12] LABS: Adenovirus F 40/41 PCR Not detected (Not detect); Astrovirus PCR Not detected (Not detect); C.difficile Toxin A/B by PCR See reflex test (Not detect); Campylobacter by PCR Not detected (Not detect); Cryptosporidium by PCR Not detected (Not detect); Cyclospora cayetanensis PCR Not detected (Not detect); E. coli O157 by PCR Not detected (Not detect); Entamoeba histolytica PCR Not detected (Not detect); Enteroaggregative E.coli(EAEC) Not detected (Not detect); Enteropathogenic E.coli(EPEC) Not detected (Not detect); Enterotoxigenic E.coli (ETEC) Not detected (Not detect); Giardia lamblia PCR Not detected (Not detect); Norovirus GI/GII PCR Not detected (Not detect); Plesiomonas shigelloides PCR Not detected (Not detect); Rotavirus A PCR Not detected (Not detect); Salmonella PCR Not detected (Not detect); Sapovirus PCR Not detected (Not detect); Shig/EnteroinvasiveE coli EIEC Not detected (Not detect); Shigalike tox-prod E coli STEC Not detected (Not detect); Vibrio PCR Not detected (Not detect); Vibrio cholerae PCR Not detected (Not detect); Yersinia enterocolitica PCR Not detected (Not detect)
[2016-04-23] MEDS ORDERED: Magnesium Sulfate 2 GM in D5% in Water 100 ML IVPB STA (07:20)
[2016-04-23] MEDS ORDERED: Calcium Gluconate 1,000 MG in D5% in Water 100 ML IVPB ONE (07:20)
[2016-04-23] MEDS ORDERED: Potassium Chloride Elixir 20 MEQ/15 ML UDC PO ONE (07:21)
[2016-04-23] MEDS: Lactobacillus 1 EACH CAP.SPRINK PO SCH ×2 (08:05→22:02)
[2016-04-23] MEDS: Vancomycin Oral Soln 250 MG/2.5 ML UDC PO SCH ×4 (08:19→22:02)
--- NOTE | 2016-04-23 09:35 | Internal Med Progress Note ---
<Buddy Sykes - Last Filed: 04/23/16 11:48> Date of Encounter: 04/23/16 Time of Encounter: 09:35 - Assessment and plan (1) Sepsis Current Visit: Yes Status: Acute Assessment and plan: Patient presented to the ED with complaint of nausea, vomiting, diarrhea. Temp 102F, hr 93, R 16, bp 120/74, 97% on room air WBC 16.5, neutrophils 14.2 Source of infection likely recurrent C. diff infection. Currently: Temp 99.6, hr 75, R 18, bp 105/66, 93% on room air. Continue Vancomycin oral and IV Flagyl. Discontinue Ciprofloxacin Qualifiers: Sepsis type: sepsis due to unspecified organism Qualified Code(s): A41.9 - Sepsis, unspecified organism (2) Clostridium difficile infection Current Visit: Yes Status: Acute Assessment and plan: Patient with a history of cefdinir antibiotics for sinus infection prior to presenting to Dr. Hoffmann 04/09/16 as an outpatient with diarrhea and was determined to have clostridium difficile infection was prescribed Flagyl which course was completed on 04/17/16. Patient reports continued continued diarrhea after completion of Flagyl course and then developed abdominal pain, nausea, and decreased oral intake/dehydration. Stool is C.diff toxin A positive, awaiting reflex test. WBC elevated at 16.4. Continue with IV flagyl, PO Vancomycin. Continue isolation precautions. Continue monitoring labs. (3) Dehydration Current Visit: Yes Status: Acute Assessment and plan: Continue with antiemetics and IV fluid hydration with normal saline. Continue to monitor labs (4) Urine abnormality Current Visit: Yes Status: Acute Assessment and plan: Abnormal Urine: Urine protein 100, Ketones trace, Trace Leukocyte esterase, urine RBC and WBC 3-5, Moderate hyaline casts calcium oxalate crystals present, urine mucus many, few bacteria. Urine culture: no growth, UTI ruled out. Discontinue Ciprofloxacin. (5) DVT prophylaxis Current Visit: Yes Status: Acute Assessment and plan: Patient is ambulatory without difficulty. Continue to encourage ambulation. - Subjective Interval history: Mr. Craig is a 46 year old male with history of gerd, htn, hld, and asthma who was admitted through the ED for dehydration and c diff infection. Patient was diagnosed on 04/10/16 with clostridium difficile infection and was prescribed Flagyl which was completed on Tuesday. Patient continued to have diarrhea and was reportedly told to start Vancomycin and followup with Dr. Mcintyre on Tuesday. Patient continue to have diarrhea throughout the week and developed nause, abdominal pain, dry lips, and decreased urination. History of cefdinir antibiotics for sinus infection for >1 week prior to onset of symptoms. Today patient continues reports yellow-brown watery diarrhea without blood, mild generalized abdominal pain, and sweats overnight. Patient denies chills, nausea, vomiting, headaches, lightheadedness, chest pain, shortness of breath, weakness, or loss of sensation. - Constitutional Vitals: Temp Pulse Resp BP Pulse Ox 99.6 F 75 18 105/66 93 L 04/23/16 08:49 04/23/16 08:49 04/23/16 08:49 04/23/16 08:49 04/23/16 08:49 General appearance: Present: cooperative, A&O X 3, no acute distress, obese, answers questions appropriately - Head Head exam: Present: atraumatic, normal inspection, normocephalic - Eye Eye exam: Present: EOMI, normal appearance - ENT ENT exam: Present: mucous membranes dry, normal external ear exam, normal oropharynx - Neck Neck exam general surgery: Present: full ROM, normal inspection, supple, trachea midline. Absent: tenderness - Respiratory Respiratory exam: Present: CTAB. Absent: rales, rhonchi, wheezes - Cardiovascular Cardiovascular exam: Present: RRR, +S1, +S2 - GI/Abdominal GI/Abdominal exam: Present: hyperactive bowel sounds, soft, tenderness (mild generalized). Absent: distended, guarding, rebound - Extremities Exam Extremities exam: Present: full ROM, normal inspection, warm, radial pulses palpable and symetrical. Absent: pedal edema, tenderness - Neurological Exam Neurological exam: Present: alert, oriented X3, no focal deficits, strengths equal and symetr throughout. Absent: facial droop, speech deficit - Psychiatric Psychiatric exam: Present: normal affect, normal mood - Skin Skin exam: Present: dry, intact, normal color, warm. Absent: diaphoretic, erythema, pallor, rash Internal Medicine: Result - Labs CBC & Chem 7: 04/23/16 03:56 04/23/16 03:56 Labs: Short CBC 04/23/16 Range/Units 03:56 WBC 16.4 H (4.3-11.1) K/mcL Hgb 10.1 L (12.9-16.9) g/dL Hct 31.8 L (37.5-50.1) % Plt Count 405 H (140-400) K/mcL Neutrophils # 14.1 H (1.6-8.9) K/mcL BMP 04/23/16 03:56 Sodium 136 Potassium 3.4 L Chloride 108 Carbon Dioxide 19 BUN 8 Creatinine 1.01 Glucose 99 Calcium 7.8 L Cardiac Enzymes 04/23/16 Range/Units 03:56 Troponin I 0.00 (0-0.03) ng/mL Liver Function 04/23/16 Range/Units 03:56 Total Bilirubin 2.6 H (0.2-1.2) mg/dL AST 19 (5-34) Units/L ALT 15 (0-55) Units/L Alkaline Phosphatase 53 (38-126) Units/L Albumin 2.8 L (3.5-5.0) g/dL Consult Discharge Plan - Plan Referrals: Luke Hoffmann MD [Primary Care Provider] - 05/03/16 2:00 pm <Fritz Duke T - Last Filed: 04/23/16 15:06> - Constitutional Vitals: Temp Pulse Resp BP Pulse Ox 99.5 F 86 18 137/74 96 04/23/16 12:38 04/23/16 12:38 04/23/16 12:38 04/23/16 12:38 04/23/16 12:38 Internal Medicine: Result - Labs CBC & Chem 7: 04/23/16 03:56 04/23/16 03:56 - Attending Attestation I examined this patient and my medical decision-making was reviewed with the WIRER/PA/Advanced Practice Nurse/Resident Physician. I agree with the documented findings, disposition and treatment plan as described except to the extent set forth below 46 Y/O M with PMH of HTN, HLD, GERD, Asthma, Obesity He is on admission for sepsis secondary to severe uncomplicated recurrent C.Diff infection He finished his first course of po Flagyl on Tuesday and made some improvement before diarrhea recurred. He is seen at bedside, reports improvement in his abdominal pain, still had 3 BM this morning Physical exam, AAOX3, not in any form of distress, moves all limbs equally, chest is clear, abdomen is soft, not distended, not tender, no palpably enlarged organs, bowel sounds are present in all quadrants, no pedal edema Labs and Imaging reviewed: Leukocytosis 16.5 with left shift, microcytic anemia with elevated RDW, tear drop cells, basophilic stippling, microcytosis, ESR 36. Chem with hypokalemia, lactate is normal, LFT, TSH WNL. UA is dirty, Urine culture final, no growth No imaging. Plan: Continue po Vanco at current dose, continue Flagyl, D/C ciprofloxacin, continue IVF hydration, send anemia work up for iron deficiency, suspect Thalasemmia, check Hb electrophoresis, send iron work up, advance diet as toelrated rest of details as in resident's documentation
[2016-04-23 14:51] LABS: Protein/Creatinine Ratio,Urine 0.09 mg/mg (0-0.20)
[2016-04-24] MEDS: MetroNIDAZOLE 500 MG/100 ML 500 MG/100 ML BAG IVPB SCH ×4 (00:03→17:55)
[2016-04-24 05:49] LABS: Basophils # 0.1 K/mcL (0.0-0.2); Basophils % 0.5 %; Eosinophils % 8.9 %; Hematocrit 28.6 % (37.5-50.1); Hemoglobin 9.1 g/dL (12.9-16.9); Immature Granulocytes % 0.5 % (0-4); Lymphocytes # 1.5 K/mcL (0.6-4.6); Lymphocytes % 13.6 %; Mean Corpuscular HGB Conc 31.8 g/dL (31.6-35.5); Mean Corpuscular Hemoglobin 19.2 pg (28.0-33.3); Mean Corpuscular Volume 60.5 fL (83.0-100.0); Mean Platelet Volume 9.8 fL (9.4-12.4); Monocytes % 9.5 %; Neutrophils # 7.2 K/mcL (1.6-8.9); Platelet Count 329 K/mcL (140-400); Red Blood Count 4.73 M/mcL (4.19-5.50)
[2016-04-24] MEDS: 0.9 % Sodium Chloride 1,000 ML IVC SCH ×2 (05:55→16:11)
[2016-04-24 06:03] LABS: BUN/Creatinine Ratio 5 (6-26); Calcium 7.9 mg/dL (8.6-10.8); Carbon Dioxide 25 mEq/L (19-29); Chloride 111 mEq/L (98-109); Glucose 90 mg/dL (70-99); Osmolality,Calculated 289 (280-300); Potassium 3.8 mEq/L (3.5-4.5); Sodium 141 mEq/L (136-145); eGFR For African Americans > 60 (> 60); eGFR For Non-African Americans > 60 (> 60)
[2016-04-24 06:04] LABS: % Iron Saturation 6 % (20-55); Iron 9 mcg/dL (65-175); Transferrin 102 mg/dL (174-364)
[2016-04-24 06:05] LABS: Blood Urea Nitrogen 5 mg/dL (8-26)
[2016-04-24 06:28] LABS: Anisocytosis 2+ (Not Present); Large Platelets Present (Not Present); Microcytosis Present (Not Present); Ovalocytes 1+ (Not Present); Platelet Estimate Normal (Normal); Poikilocytosis 2+ (Not Present); Schistocytes 1+ (Not Present); Tear Drop Cells 1+ (Not Present)
[2016-04-24] MEDS: Vancomycin Oral Soln 250 MG/2.5 ML UDC PO SCH ×4 (09:33→22:22)
[2016-04-24] MEDS: Lactobacillus 1 EACH CAP.SPRINK PO SCH ×2 (09:33→22:22)
--- NOTE | 2016-04-24 14:09 | Internal Med Progress Note ---
Date of Encounter: 04/24/16 Time of Encounter: 11:00 - Assessment and plan (1) Sepsis Current Visit: Yes Status: Acute Assessment and plan: Tmax 102 Last fever 101 04/23/16 20.16 WBC improving 16.5 on admission, 10.7 now Continue Vanco and Flagyl Qualifiers: Sepsis type: sepsis due to unspecified organism Qualified Code(s): A41.9 - Sepsis, unspecified organism (2) Dehydration Current Visit: Yes Status: Acute Assessment and plan: Improved (3) Clostridium difficile enterocolitis Current Visit: Yes Status: Acute Assessment and plan: Severe, uncomplicated, recurrent Continue current meds (4) Thalassemia minor Current Visit: Yes Status: Chronic (5) Urine abnormality Current Visit: Yes Status: Acute Assessment and plan: Dirty urine, urine culture with no growth. Cipro discontinued already Hyaline casts possibly from dehydration and patient has no AZIZA. (6) HTN (hypertension) Current Visit: Yes Status: Chronic Assessment and plan: BP acceptable sine admission On Norvasc 5 po at home, will restart pen Qualifiers: Hypertension type: essential hypertension Qualified Code(s): I10 - Essential (primary) hypertension (7) Obesity (BMI 30-39.9) Current Visit: Yes Status: Chronic - Subjective Interval history: 46 Y/O M with PMH of HTN, HLD, GERD, Asthma, Obesity, Thalassemias He is on admission for sepsis secondary to severe uncomplicated recurrent C.Diff infection He is seen at bedside, reports improvement in his abdominal pain, still had 3 BM this morning His last fever was 04/23/16 2016 His WBC is trending down - Constitutional Vitals: Temp Pulse Resp BP Pulse Ox 97.4 F L 69 16 126/79 96 04/24/16 11:49 04/24/16 11:49 04/24/16 11:49 04/24/16 11:49 04/24/16 11:49 General appearance: Present: cooperative, A&O X 3, no acute distress, obese, answers questions appropriately - Head Head exam: Present: atraumatic, normocephalic - Eye Eye exam: Present: PERRL, conjuntiva pink, sclera anicteric Pupils: Present: PERRL - Neck Neck exam general surgery: Present: supple, trachea midline. Absent: lymphadenopathy - Respiratory Respiratory exam: Present: CTAB. Absent: accessory muscle use, rales, rhonchi, wheezes - Cardiovascular Cardiovascular exam: Present: RRR, +S1, +S2. Absent: diastolic murmur, gallop, rubs, systolic murmur - GI/Abdominal GI/Abdominal exam: Present: normal bowel sounds, soft, no peritoneal signs. Absent: distended, tenderness - Extremities Exam Extremities exam: Present: warm, radial pulses palpable and symetrical. Absent : calf tenderness, cyanotic, pedal edema - Neurological Exam Neurological exam: Present: CN II-XII intact, oriented X3, no focal deficits. Absent: pronater drift, facial droop, speech deficit - Skin Skin exam: Present: dry, intact Internal Medicine: Result - Labs CBC & Chem 7: 04/24/16 05:12 04/24/16 05:12 Labs: Short CBC 04/24/16 Range/Units 05:12 WBC 10.7 (4.3-11.1) K/mcL Hgb 9.1 L (12.9-16.9) g/dL Hct 28.6 L (37.5-50.1) % Plt Count 329 (140-400) K/mcL Neutrophils # 7.2 (1.6-8.9) K/mcL BMP 04/24/16 05:12 Sodium 141 Potassium 3.8 Chloride 111 H Carbon Dioxide 25 BUN 5 L Creatinine 0.91 Glucose 90 Calcium 7.9 L Consult Discharge Plan - Plan Referrals: Luke Hoffmann MD [Primary Care Provider] - 05/03/16 2:00 pm
[2016-04-25] MEDS: MetroNIDAZOLE 500 MG/100 ML 500 MG/100 ML BAG IVPB SCH ×2 (00:14→06:25)
[2016-04-25] MEDS: 0.9 % Sodium Chloride 1,000 ML IVC SCH (00:15)
[2016-04-25 06:37] LABS: Basophils # 0.1 K/mcL (0.0-0.2); Basophils % 0.8 %; Eosinophils # 0.8 K/mcL (0.0-0.6); Eosinophils % 11.6 %; Hematocrit 28.6 % (37.5-50.1); Immature Granulocytes % 0.3 % (0-4); Lymphocytes # 1.8 K/mcL (0.6-4.6); Lymphocytes % 26.7 %; Mean Corpuscular HGB Conc 31.5 g/dL (31.6-35.5); Mean Corpuscular Hemoglobin 18.8 pg (28.0-33.3); Mean Corpuscular Volume 59.6 fL (83.0-100.0); Mean Platelet Volume 10.3 fL (9.4-12.4); Monocytes # 0.7 K/mcL (0.0-1.3); Monocytes % 10.3 %; Neutrophils # 3.3 K/mcL (1.6-8.9); Platelet Count 374 K/mcL (140-400); Red Cell Distribution Width 18.7 % (11.5-14.5); Segmented Neutrophils % 50.3 %
[2016-04-25 06:47] LABS: BUN/Creatinine Ratio 7 (6-26); Blood Urea Nitrogen 6 mg/dL (8-26); Calcium 7.8 mg/dL (8.6-10.8); Carbon Dioxide 26 mEq/L (19-29); Chloride 109 mEq/L (98-109); Glucose 87 mg/dL (70-99); Osmolality,Calculated 291 (280-300); Potassium 3.8 mEq/L (3.5-4.5); Sodium 142 mEq/L (136-145); eGFR For African Americans > 60 (> 60); eGFR For Non-African Americans > 60 (> 60)
[2016-04-25 06:58] LABS: Platelet Estimate Normal (Normal); Poikilocytosis 1+ (Not Present); Reactive Lymphocytes Present (Not Present)
[2016-04-25 06:59] LABS: Microcytosis Present (Not Present)
[2016-04-25 08:14] VITALS: BP 127/90
[2016-04-25] MEDS: Lactobacillus 1 EACH CAP.SPRINK PO SCH (08:23)
[2016-04-25] MEDS: Vancomycin Oral Soln 250 MG/2.5 ML UDC PO SCH (08:24)
--- NOTE | 2016-04-25 10:54 | Discharge Summary ---
Date of Encounter: 04/25/16 Time of Encounter: 10:00 - Discharge Diagnosis (1) Sepsis Priority: Primary Status: Resolved Qualifiers: Sepsis type: sepsis due to unspecified organism Qualified Code(s): A41.9 - Sepsis, unspecified organism (2) Dehydration Priority: Primary Status: Resolved (3) Clostridium difficile enterocolitis Priority: Primary Status: Acute (4) Thalassemia minor Priority: Secondary Status: Chronic (5) Urine abnormality Priority: Secondary Status: Acute (6) HTN (hypertension) Priority: Secondary Status: Chronic Qualifiers: Hypertension type: essential hypertension Qualified Code(s): I10 - Essential (primary) hypertension (7) Obesity (BMI 30-39.9) Priority: Secondary Status: Chronic - Discharge Medications Prescriptions: Lactobacillus [Culturelle] 1 each PO BID #10 cap.sprink Vancomycin HCl 250 mg PO QID #40 cap Home Medications: Amlodipine [Norvasc] 5 mg PO DAILY 04/23/16 [History] Aspirin [Lo-Dose Aspirin EC] 81 mg PO DAILY 04/23/16 [History] Escitalopram [Lexapro] 10 mg PO DAILY 04/23/16 [History] Fluticasone Propionate [Flovent Hfa] 2 puff IH BID 04/23/16 [History] Lactobacillus [Culturelle] 1 each PO BID #10 cap.sprink 04/25/16 [Rx] Vancomycin HCl 250 mg PO QID #40 cap 04/25/16 [Rx] Allergies/Adverse Reactions: Allergies Penicillins [PCN] Allergy (Verified 10/30/15 16:45) Hives Date of admission: 04/23/16 14:06 Primary care physician: Luke Hoffmann MD Discharging clinician: Fritz Duke Anticipated date of discharge: 04/25/16 - Patient Status Disposition: Home, Self-Care Condition: Good Functional capacity at discharge: independent ambulation Overall status at discharge: patient is back to baseline - Discharge Instructions Instructions: Gastroenteritis (DC), Sepsis (DC), Anemia (GEN) Follow Up With: Luke Hoffmann MD [Primary Care Provider] - 05/03/16 2:00 pm - Diet and Activity Activity: resume usual activities as tolerated Diet: low salt diet Interval History: See below Hospital course: Mr. Craig is a 46 year old male with history of gerd, htn, hld, thalassemia minor and asthma who was admitted through the ED for management of sepsis secondary to severe relapse of C.diff enterocolitis. Patient presented to the ED with complaint of nausea, vomiting, diarrhea. Temp 102F, hr 93, R 16, bp 120/74, 97% on room air, WBC 16.5, neutrophils 14.2, anemia at baseline He was started on Vancomycin po and Flagyl IV His fever has resolved, with last fever on 04/23/16 Leukocytosis has resolved, and patient states his diarrhea has resolved and his stool has begun to be formed he is seen at bedside today with no new complains Vitals are stable, he is stable for discharge home with family He is counselled on need for compliance with po vancomycin for 10 more days. Verbalized understanding His UA was dirty and with hyaline casts on admission, but Urine culture is negative Patient has a hx of Thalassemia, his anemia has been stable since admission Follow up with PCP Refused Flu shot - Time Spent with Patient Total time spent providing and/or coordinating discharge services: Less than 30 minutes - Constitutional Vitals: Temp Pulse Resp BP Pulse Ox 97.5 F L 54 18 127/90 96 04/25/16 08:02 04/25/16 08:02 04/25/16 08:02 04/25/16 08:02 04/25/16 08:02 General appearance: Present: cooperative, A&O X 3, no acute distress, obese, answers questions appropriately - Head Head exam: Present: atraumatic, normocephalic - Eye Eye exam: Present: PERRL, conjuntiva pink, sclera anicteric Pupils: Present: PERRL - Neck Neck exam general surgery: Present: supple, trachea midline. Absent: lymphadenopathy - Respiratory Respiratory exam: Present: CTAB. Absent: accessory muscle use, rales, rhonchi, wheezes - Cardiovascular Cardiovascular exam: Present: RRR, +S1, +S2. Absent: diastolic murmur, gallop, rubs, systolic murmur - GI/Abdominal GI/Abdominal exam: Present: normal bowel sounds, soft, no peritoneal signs. Absent: distended, tenderness - Extremities Exam Extremities exam: Present: warm, radial pulses palpable and symetrical. Absent : calf tenderness, cyanotic, pedal edema - Neurological Exam Neurological exam: Present: alert, CN II-XII intact, oriented X3, no focal deficits. Absent: pronater drift, facial droop, speech deficit - Skin Skin exam: Present: dry, intact
[2016-04-26 11:46] LABS: Sickle Cell Solubility NOT PERFORMED
[2016-04-26 13:58] LABS: Hemoglobin Capillary Electroph NOT PERFORMED
[2016-04-29 10:48] LABS: Urine Collection Duration NOT PROVIDED hr; Urine Collection Volume NOT PROVIDED mL
== END 2016-04-25 12:50 | disposition home or self-care (01) | DRG 872 ==
LOC: EMEROO 21:23 → 3ANU 21:23 → SUATTDRO 04-23 14:06
PROVIDERS: ADMIT Pediatrics; ATTEND Internal Medicine